=== PATIENT | female | born 1975 | race African-American/Black ===

== ENCOUNTER 2017-05-14 16:52 | Emergency (ER) | payer OTHER ==
[~2017-05-14] VITALS: Ht 160 cm; Wt 72.6 kg
[~2017-05-14 16:52] MED LIST: ACTOPLUS MET 11 EAC1; BACTRIM DS TAB1 EACH PO; DOXYCYCLINE 10100 M1 PO; ECHINACEA HERB380 MG; IBUPROFEN 600600 M1 PO; NOHOMEMEDICATIONS; NORCO 5-325 TA1 EACH PO; VICODIN ES TAB1 EACH PO; ZOFRAN4 MG PO; ZPAK PO
[2017-05-14] MEDS ORDERED: HYDROCODONE-AP1 EAC6 PO (17:49)
[2017-05-14] MEDS ORDERED: IBUPROFEN 600600 M1 PO (17:49)
[2017-05-14] MEDS ORDERED: FLEXERIL PO (17:49)
== END 2017-05-14 18:29 | disposition home or self-care (01) ==
LOC: ER 16:52
DX: M43.6 Torticollis (principal); F10.99 Alcohol use, unspecified with unspecified alcohol-induced disorder; Z88.5 Allergy status to narcotic agent